=== PATIENT | female | born 1995 | race Two or more races ===

== ENCOUNTER → 2022-12-13 | Emergency (ER) | payer OTHER ==
[~2022-12-13] VITALS: Ht 165.1 cm; Wt 98.9 kg
[~2022-12-13] MED LIST: CELEBREX200MG PO; METAXALONE800 MG PO
== END | disposition home or self-care (01) ==
LOC: ER 14:30
DX: M54.9 Dorsalgia, unspecified (principal)

== ENCOUNTER 2023-08-27 10:38 | Emergency (ER) | payer OTHER ==
[~2023-08-27] VITALS: Ht 157.5 cm; Wt 97.5 kg
[2023-08-27 14:02] LABS: HEMATOCRIT 39.7 % (36.0-45.00); HEMOGLOBIN 12.7 g/dL (12.0-15.00); MEAN CELL VOLUME 74.2 fL (80.00-100.00); MEAN CORPUSCULAR HEMOGLOBIN 23.8 pg (27.00-32.0); MEAN CORPUSCULAR HGB CONC 32.1 g/dl (32.0-36.0); PLATELET COUNT 295 K/uL (150-450); RED BLOOD COUNT 5.35 M/uL (4.00-6.00); RED CELL DISTRIBUTION WIDTH 14.3 % (11.5-14.5)
[2023-08-27 14:18] LABS: CALCIUM 9.4 mg/dL (8.5-10.1); CREATININE SERUM 0.71 mg/dL (0.55-1.02); GFR 98.02; POTASSIUM 3.94 mEq/L (3.5-5.1)
[2023-08-27] MEDS ORDERED: ZOFRAN8 MG PO (16:32)
[2023-08-27] MEDS ORDERED: PEPCID AC20 MG PO (16:32)
== END 2023-08-27 17:08 | disposition home or self-care (01) ==
LOC: ER 10:38
PROVIDERS: Emergency Medicine
DX: K52.89 Other specified noninfective gastroenteritis and colitis (principal)

== ENCOUNTER 2024-01-03 20:31 | Emergency (ER) | payer OTHER ==
[~2024-01-03] VITALS: Ht 157.5 cm; Wt 95.7 kg
[~2024-01-03 20:31] MED LIST changes: +PEPCID AC20 MG PO; +ZOFRAN8 MG PO
[2024-01-03] MEDS ORDERED: KETOROLAC TROMETHAMINE 30 MG VIAL IM ONE (22:00)
== END 2024-01-04 00:59 | disposition home or self-care (01) ==
LOC: ER 20:31
DX: S93.401A Sprain of unspecified ligament of right ankle, initial encounter (principal); W18.39XA Other fall on same level, initial encounter; Y93.79 Activity, other specified sports and athletics; Y92.89 Other specified places as the place of occurrence of the external cause; Y99.9 Unspecified external cause status